=== PATIENT | male | born 1945 | race Caucasian/White ===

== ENCOUNTER → 2017-08-20 | Outpatient (CLI) | payer OTHER ==
[~2017-08-20] VITALS: Ht 175.3 cm; Wt 95.3 kg
[~2017-08-20] MED LIST: ADULT LOW DOSE81 MG PO; ALLEGRA60 MG; CENTRUM SILVER1 EAC1; CENTRUM SILVER1 EAC2 PO; CIPROFLOXACIN500 M1 PO; FLOMAX; FLOMAX0.4 MG PO; JANUVIA100 MG PO; MAVIK2 MG; METFORMIN HCL500 MG PO; PRAVACHOL20 MG PO; TRANDOLAPRIL1 MG PO; VITAMINC500 PO; VYTORIN 10-201 EACH; [UNRECOGNIZED DRUG - OTHER]
--- NOTE | ~2017-08-20 | P ---
[facility] [place] [address] PROCEDURE REPORT Name: ARACELIS HURST Room #: [facility]#: [id number] Admission: 08/20/17 Attend Phys: Ace Perez MD Discharge: Date of : 43 Report #: [id number] THIS REPORT FOR: //name// CC: Constantine Perez DATE OF SERVICE: 08/20/2017 BRIEF HISTORY: The patient is a 71-year-old male with history of colon adenomas. He presents today for high risk screening colonoscopy due to cystic colon adenomas. PREOPERATIVE DIAGNOSIS: High risk screening colonoscopy. POSTOPERATIVE DIAGNOSES: 1. Diminutive polyp, cecum. 2. Diminutive polyp, proximal ascending colon. 3. Moderate sigmoid diverticulosis coli. MEDICATIONS: Deep sedation with propofol per anesthesia. SPECIMEN: 1. Cecal polyp. 2. Proximal ascending colon polyp. ESTIMATED BLOOD LOSS: 3 mL. PROCEDURES PERFORMED: Colonoscopy to cecum and terminal ileum with biopsy. CONSENT: Prior to propofol sedation, procedure of colonoscopy discussed with the patient as well as potential risks and its complications. He indicates he understands and desires to proceed. DESCRIPTION OF PROCEDURE: With the patient in left lateral decubitus position, digital examination was completed which revealed no abnormalities. Subsequently, the [employer] video colonoscope was introduced in the rectum, advanced under direct vision to the cecum. Done with a minimal difficulty. The cecum was identified by the ileocecal valve and the appendiceal orifice. I was able to visualize the distal segment of terminal ileum, which was inspected and noted to be unremarkable. At that point, the scope was slowly withdrawn and careful circumferential views obtained, including retroflexing the scope in the ascending colon. Upon slow withdrawal of the scope, the prep was noted to be excellent. The mucosa was within normal limits, normal vascular pattern, normal light reflex. As we withdrew the scope, a diminutive polyp seen in the cecum [facility] [address] [place] [address] PROCEDURE REPORT Name: ARACELIS HURST Room #: [facility]#: [id number] Admission: 08/20/17 Attend Phys: Ace Perez MD Discharge: Date of : 43 Report #: [id number] and removed by biopsy. The scope was further withdrawn and another diminutive polyp seen and removed by biopsy from the proximal ascending colon. This was removed by biopsy as well. Scope was further withdrawn and no additional neoplastic lesions were seen. As the scope was withdrawn through the left colon, he was noted to have moderately severe diverticular disease, primarily in the sigmoid colon without endoscopic evidence of diverticulitis. Scope was withdrawn in the rectum. Upon retroflexion, no abnormalities were seen. Scope was withdrawn. The patient tolerated the procedure well. CONDITION OF THE PATIENT UPON DISCHARGE: Following procedure, the patient drowsy, aroused, conversant, and will be discharged home when fully ambulatory. INSTRUCTIONS TO THE PATIENT AND FAMILY AT THE TIME OF DISCHARGE: We will follow up on the path of the polyps. In view of his history of colon polyps and finding of 2 polyps today, we will have him return in 5 years for his next colonoscopy. Last colonoscopy was approximately 3 years ago. Withdrawal time from the cecum was 15 minutes 17 seconds. <ELECTRONICALLY SIGNED> By: Ace Perez MD 08/22/17 1305 [id number] 0849 Ace Perez MD /nt
--- NOTE | ~2017-08-20 | S ---
[facility] [place] [address] SURGICAL PATH RPT PROCEDURE Name: ARACELIS HURST Room #: [facility] Marcos.#: [id number] Admission: 08/20/17 Date of : 43 Discharge: Report #: [id number] Path Case #: [id number] PATHOLOGY REPORT COLLECTION DATE: 08/20/2017 RECEIVED DATE: 08/20/2017 SUBMITTING PHYS: Dr. Ace Perez OTHER PHYS: Dr. Constantine Foster SPECIMEN(S) RECEIVED: A.Polyp at cecum B.Polyp at proximal ascending colon * * * * * * * * * * * * FINAL DIAGNOSIS: A. Colon, cecum, biopsy: - Polypoid colonic mucosa with lymphoid aggregate. B. Colon, proximal ascending, biopsy: - Tubular adenoma. - Negative for high grade dysplasia. PATHOLOGIST: Michael Aguilera M.D. REPORT ELECTRONICALLY SIGNED BY: Michael Aguilera M.D. DATE/TIME: 08/21/2017 11:44 * * * * * * * * * * * * GROSS PATHOLOGY: A. Received in formalin labeled "Aracelis Hurst, polyp at cecum," is a segment of fitzpatrick soft tissue measuring 0.4 cm in maximum dimension. The specimen is submitted entirely in cassette A1. B. Received in formalin labeled "Aracelis Hurst, polyp at proximal/ascending colon," are 3 segments of fitzpatrick soft tissue measuring 1.3 x 0.5 x 0.3 cm in aggregate dimensions and ranging from 0.4 to 0.6 cm in maximum dimension. The specimen is submitted entirely in cassette B1. (TSD; 08/20/2017) CLINICAL HISTORY: Pre-OP DX: Hx polyps Post -OP DX: Colon polyps and diverticulosis INITIAL CPT CODE(S): A; 40771 B; 65812 Professional services performed by [facility] at [facility] [address] [place] [address] SURGICAL PATH RPT PROCEDURE Name: ARACELIS HURST Room #: TERES[facility]#: [id number] Admission: 08/20/17 Date of : 43 Discharge: Report #: [id number] Path Case #: [id number] [address] [facility] [place] [address] Technical services performed by [facility] at [address] [place] [address], [facility] [address] [address]. [place] [address] PHONE: [phone] DIRECTOR: Uriel Sage M.D. * * * END OF REPORT * * *
== END | disposition home or self-care (01) ==
LOC: GI 07:04
DX: D12.2 Benign neoplasm of ascending colon (principal); D12.0 Benign neoplasm of cecum; K57.30 Diverticulosis of large intestine without perforation or abscess without bleeding; I10 Essential (primary) hypertension; E78.5 Hyperlipidemia, unspecified; N40.0 Benign prostatic hyperplasia without lower urinary tract symptoms; Z98.890 Other specified postprocedural states; E11.9 Type 2 diabetes mellitus without complications
CPT/HCPCS: 62110; 62900